=== PATIENT | male | born 2000 | race Caucasian/White ===

== ENCOUNTER 2023-11-27 13:51 | Emergency (ER) | payer OTHER, SELFPAY ==
[2023-11-27 15:10] VITALS: BP 111/73; PULSE 85; RESP 14; TEMP 36.6; O2SAT 99
--- NOTE | 2023-11-27 15:19 | ED.MEDCLEAR ---
HPI - Medical Clearance General Chief complaint: Medical Clearance Stated complaint: medical clearance Time Seen by Provider: 11/27/23 15:19 Focused HPI: Patient is to be placed voluntarily for psychiatric issues. He needs medical clearance. He has had worsening intrusive thoughts and thoughts of suicide. Mother reports history of stroke and extensive psychiatric issues. GENERAL: Well-appearing, well-nourished, and in no acute distress. HEAD: Normocephalic, atraumatic. CHEST: Clear to auscultation. ?No respiratory distress. HEART: Regular rate and rhythm.? NEURO: ?Alert and oriented x3. Patient screened in triage and initial orders placed.? ?Additional care and disposition to be based upon?diagnostic testing and treatment. Related Information Allergies Allergy/AdvReac Type Severity Reaction Status Date / Time levadopa Allergy Mild Unknown Uncoded 11/27/23 13:55 Course Vital Signs Vital signs: Vital Signs Temperature 97.9 F 11/27/23 15:10 Pulse Rate 85 11/27/23 15:10 Respiratory Rate 14 11/27/23 15:10 Blood Pressure 111/73 11/27/23 15:10 Pulse Oximetry 99 11/27/23 15:10 Oxygen Delivery Room Air 11/27/23 15:10 Temperature 97.9 F 11/27/23 15:10 Pulse Rate 85 11/27/23 15:10 Respiratory Rate 14 11/27/23 15:10 Blood Pressure 111/73 11/27/23 15:10 Pulse Oximetry 99 11/27/23 15:10 Oxygen Delivery Room Air 11/27/23 15:10 Discharge Plan Discharge Follow-up/Referrals: Sabine Allen MD [Primary Care Provider] -
[2023-11-27 16:25] LABS: Basophils Absolute Auto 0.1 K/mm3 (0.0-0.1); Basophils Percent Auto 0.9 % (0.2-1.2); Eosinophils Absolute Auto 0.1 K/mm3 (0-0.3); Hematocrit 44.5 % (42.0-52.0); Hemoglobin 15.4 g/dL (14.0-18.0); Immature Granulocyte Absolute 0.02 K/mm3 (0.00-0.031); Immature Granulocyte Percent A 0.3 % (0-0.5); Lymphocytes Absolute Auto 1.77 K/mm3 (0.9-3.2); Lymphocytes Percent Auto 30.1 % (18.3-44.2); Mean Corpuscular HGB Conc 34.6 g/dl (32-36); Mean Corpuscular Hemoglobin 33.8 pg (26-34); Mean Corpuscular Volume 97.6 fl (80-100); Mean Platelet Volume 12.7 fl (7.4-10.4); Monocytes Absolute Auto 0.5 K/mm3 (0.1-0.6); Monocytes Percent Auto 8.7 % (2.6-8.5); Neutrophils Absolute Auto 3.5 K/mm3 (1.3-6.7); Platelet Count Result 204 k/mm3 (150-375); Red Blood Count 4.56 M/mm3 (4.6-6.20); Red Cell Distribution Width 12.3 % (11.5-14.5); White Blood Count 5.9 K/mm3 (4.5-10.0)
[2023-11-27 16:34] LABS: Ethanol < 10 mg/dL (<10)
[2023-11-27 16:35] LABS: Alanine Aminotransferase 27 U/L (6-50); Alkaline Phosphatase 54 U/L (38-126); Anion Gap 12 mmol/L (4-12); Aspartate Amino Transferase 32 U/L (17-59); Bilirubin,Total 0.6 mg/dL (0.2-1.3); Blood Urea Nitrogen 11 mg/dL (9-20); Calcium 9.6 mg/dL (8.4-10.2); Carbon Dioxide 29 mmol/L (22-30); Chloride 99 mmol/L (98-107); Estimated CRCL calculation 132 ml/min; Estimated Glomerular Filt Rate > 60; Glucose 87 mg/dL (65-110); Potassium 3.7 mmol/L (3.4-5.0); Sodium 140 mmol/L (137-145)
[2023-11-27 16:46] LABS: Add Urine Microscopic? YES; Appearance Urine Clear (Clear); Bacteria Urine None Seen /hpf; Bilirubin Urine Negative (Negative); Blood Urine Negative (Negative); Color Urine Yellow (Yellow); Glucose Urine UA Negative (Negative); Ketones Urine Negative (Negative); Leukocyte Esterase Ur Trace LEU/UL (Negative); Nitrate Urine Negative (Negative); Non Pathogenic Casts 0-2; Protein Urine Negative (Negative); RBC Urine 0-2 /hpf (0-2); Specific Grav Ur 1.012 (1.001-1.035); Squamous Epithelial Cell Urine None Seen /hpf (Few); Urobilinogen Urine 0.2 mg/dL (<2.0); WBC Urine 0-5 /hpf (0-3)
[2023-11-27 17:04] LABS: Influenza A QL RT-PCR Negative (Negative); Influenza B QL RT-PCR Negative (Negative); RSV RNA, RT-PCR Negative (Negative); SARS-CoV-2 RNA PCR Negative (Negative)
[2023-11-27 17:13] LABS: Barbiturate Screen Urine Negative (Negative); Benzodiazepines Screen Urine Negative (Negative)
[2023-11-27 17:15] LABS: Amphetamine Screen Urine Negative (Negative); Cannabinoid Screen Urine Negative (Negative); Cocaine Screen Urine Negative (Negative); Methadone Screen Urine Negative (Negative); Opiate Screen Urine Negative (Negative); Phencyclidine Screen Urine Negative (Negative)
--- NOTE | 2023-11-27 17:57 | ED.PSYCH ---
HPI - Psych General Chief Complaint: Psychiatric Symptoms <Norma Vo APRN - Last Filed: 11/27/23 20:04> Stated Complaint: medical clearance <Norma Vo APRN - Last Filed: 11/27/23 20:04> Time Seen by Provider: 11/27/23 15:19 <Norma Vo APRN - Last Filed: 11/27/23 20:04> Pt is a 23-year-old male who presents to the ER with complaints of ongoing depression and suicidal ideation. He reports he has been experiencing these symptoms for about four years, but they seem to have gotten worse lately. Pt requests EMS COORDINATOR speak with his mom to get more information because I'm just so tired. He reports he takes daily medication and muscle relaxants (from a previous strokes). Pt reports I just want to go home. He reports he has had thoughts of hurting himself and others intermittently but no active plans at this time. Pt denies chest pain, shortness of breath, or rapid heart rate. <Norma Vo APRN - Last Filed: 11/27/23 20:04> Related Data Home Medications: Home Medications Medication Instructions Recorded Confirmed citalopram 10 mg tablet 10 mg PO DAILY 11/27/23 11/27/23 methylphenidate HCl 18 mg mg PO 11/27/23 tablet,extended release 24 hr ([facility]) pregabalin 75 mg capsule 75 mg 11/27/23 tizanidine 4 mg tablet 4 mg PO BID PRN Mild Pain (Scale 11/27/23 11/27/23 Score 1-4) <Norma Vo APRN - Last Filed: 11/27/23 20:04> Allergies/Adverse Reactions: Allergies Allergy/AdvReac Type Severity Reaction Status Date / Time levadopa Allergy Mild Unknown Uncoded 11/27/23 16:01 <Norma Vo APRN - Last Filed: 11/27/23 20:04> Review of Systems Review of Systems: All systems reviewed & are unremarkable except as noted in HPI and below <Norma Vo APRN - Last Filed: 11/27/23 20:04> [facility] Social History Social History: Social History Substance use type: does not use <Norma Vo APRN - Last Filed: 11/27/23 20:04> Exam Narrative: GENERAL: Well-appearing, well-nourished and in no acute distress. CARDIAC: Regular rate and rhythm without murmurs, rubs or gallops. RESPIRATORY: Clear to auscultation bilaterally. No wheezes, rales or rhonchi. ABDOMEN: Soft, nontender, normoactive bowel sounds throughout, no guarding, no rebound. No masses appreciated. EXTREMITIES: Normal range of motion, no swelling, clubbing or other deformities. NEUROLOGICAL: Cranial nerves II through XII grossly intact, no focal deficits noted. He is able to answer questions appropriately and is A & Ox4. SKIN: Warm, dry, normal color, no rashes, no lesions. <Norma Vo APRN - Last Filed: 11/27/23 20:04> Neuro: Speech: Abnormal speech present (from previous stroke) slurred <Norma Vo APRN - Last Filed: 11/27/23 20:04> Psych: Affect: Sad affect present <Norma Vo APRN - Last Filed: 11/27/23 20:04> Attitude: cooperative <Norma Vo APRN - Last Filed: 11/27/23 20:04> Course Course Emergency Course: Patient was handed off to me by EMS COORDINATOR Norma Vo. he has remained stable and is without complaints. I did place orders for tizanidine and Lyrica per his request which are his home medications. No acute events during my care. Pending placement and bed assignment at time of sign-out to Dr. Denson. <Jocelyne Kaminski PA-C - Last Filed: 11/28/23 03:17> EMS COORDINATOR/PA Physician Supervision For this patient encounter, I reviewed the EMS COORDINATOR or PA documentation, treatment plan, and medical decision making and had [id number] time with this patient. I performed all aspects of the MDM as documented. <Eliel Denson MD - Last Filed: 11/28/23 07:19> Vital Signs Vital signs: Vital Signs Temperature 97.9 F 11/27/23 15:10 Pulse Rate 85 11/27/23 15:10 Respiratory Rate 14 11/27/23 15:10 Blood Pressure 111/73 11/27/23 15:10 Pulse Oximetry 99
--- NOTE | 2023-11-27 18:00 | PC.NURSE ---
meal tray ordered for patient
--- NOTE | 2023-11-27 20:06 | PC.NURSE ---
Numerous phone calls made to [facility] staff without reply. [facility] emergency line called and investigated the evaluation that occurred at the patient's home earlier in the day. The long term care social worker states that they are unable to find any notes on the patient. The long term care social worker did state that she knows in other counties they are allowed to evaluate and send them to the hospital for medical clearance while the social workers search for a bed. They were unable to verify if this is going on, so they recommend following our protocols for placement. [facility] contacted at [facility] who accepted the patient; advised they will be here within two hours.
--- NOTE | 2023-11-27 20:16 | PC.NURSE ---
Patient's mother at bedside who states she had not been informed of anything that is going on since being here. This RN spoke with her about the process of getting placement at a behavioral health facility. Mother is agitated and raising her voice. Patient expresses wishes to leave. EDP at bedside and explains the process again. Patient and mother informed that [facility] has been called and they will arrive within two hours.
[2023-11-27 22:19] VITALS: BP 114/70; PULSE 82; RESP 15; O2SAT 100
[2023-11-27] MEDS: PREGABALIN (*CRX) 75 MG CAPSULE PO (23:01)
[2023-11-27] MEDS: TIZANIDINE HCL 4 MG TABLET PO (23:02)
--- NOTE | 2023-11-28 01:37 | PC.NURSE ---
[facility] states they have no updates on hospitals to fax.
[2023-11-28 08:04] VITALS: BP 127/96; PULSE 80; RESP 18; TEMP 36.9; O2SAT 100
--- NOTE | 2023-11-28 08:06 | PC.NURSE ---
Pt mother at bedside visibly upset. She states she wants to take her son home. She states she just wanted some extra help and this is not helping. Pt denies SI/HI at this time, he states it only happens sometimes and he just wants to go home. Pt refuses breakfast meal tray/ morning meds. VS updated and pt and family updated on waiting process at this time.
--- NOTE | 2023-11-28 08:25 | PC.NURSE ---
[facility] called for update. Transferred to [facility] who evaluated pt at their home on 11/26. Sent to [facility], message left.
--- NOTE | 2023-11-28 08:36 | PC.NURSE ---
Pt mother came up to nurse's station saying she has voluntary paperwork, is sick of sitting in that hostage room, is going to take her son home, and wants to sign AMA papers. Pt and mom redirected to room 15 to wait for further education and paperwork. MD and collections specialist made aware. MD agreeable to pt going home with mom against AMA. Pt mom educated on risks of taking son home. Mother verbalizes understanding, taking full responsibility for taking her son home. Mom states she will be taking pt to safe place and helping him from home. Pt mother signs AMA papers on behalf of patient. Pt leaves ED in NAD, denying any SI/HI, accompanied by parent.
== END 2023-11-28 08:46 ==
PROVIDERS: Physician Assistant; Registered Nurse; Emergency Provider Physician Assistant; PCP Nurse Practitioner Family
DX: R45.851 Suicidal ideations (principal); Z20.822 Contact with and (suspected) exposure to COVID-19; F32.A Depression, unspecified
CPT/HCPCS: 36415; 80053; 80307; 81001; 84443; 85025; 87637; 99284; 99285; A9270